=== PATIENT | female | born 1965 | race Caucasian/White ===

== ENCOUNTER 2017-11-15 01:00 | Emergency (ER) | payer OTHER ==
[~2017-11-15 01:00] MED LIST: HYDRALAZINE HCL50 MG PO; HYDROCHLOROTHIA25 MG PO; HYDROCODON-ACE1 EA10 PO; LISINOPRIL20 MG PO; METOPROLOL TART50 MG PO; NORVASC2.5 MG PO
== END 2017-11-15 01:39 | disposition left against medical advice (07) ==
LOC: ED 01:00
DX: Z53.21 Procedure and treatment not carried out due to patient leaving prior to being seen by health care provider (principal)

== ENCOUNTER 2017-12-12 21:12 | Emergency (ER) | payer OTHER ==
[~2017-12-12] VITALS: Ht 160 cm; Wt 89.8 kg
[2017-12-12] MEDS ORDERED: LABETALOL HCL100 MG PO (21:35)
[2017-12-12] MEDS ORDERED: AMLODIPINE BES2.5 MG PO (21:35)
[2017-12-12] MEDS ORDERED: TRAZODONE HCL100 MG PO (21:36)
[2017-12-12] MEDS ORDERED: PRISTIQ ER25 MG PO (21:36)
[2017-12-12] MEDS ORDERED: VENTOLIN HFA18 GM INH (21:38)
[2017-12-12] MEDS ORDERED: BUSPIRONE HCL5 MG PO (23:51)
== END 2017-12-13 00:02 | disposition home or self-care (01) ==
LOC: ED 21:12
DX: F41.9 Anxiety disorder, unspecified (principal); I10 Essential (primary) hypertension; F17.200 Nicotine dependence, unspecified, uncomplicated; Z88.0 Allergy status to penicillin; Z88.8 Allergy status to other drugs, medicaments and biological substances; Z91.040 Latex allergy status; Z79.899 Other long term (current) drug therapy
CPT/HCPCS: 96372; 99283; J2060

== ENCOUNTER 2018-09-06 17:27 | Emergency (ER) | payer OTHER ==
[~2018-09-06] VITALS: Ht 160 cm; Wt 95.2 kg
--- OUTSIDE RECORDS SUMMARY | ~2018-09-06 | XMS | Clinical Summary ---
Demographics + + + | Address | [address] | | | [place] [address] | + + + | Home Phone | | + + + | Preferred Language | Unknown | + + + | Marital Status | Unknown | + + + | Zoroastrianism Affiliation | Unknown | + + + | Race | Unknown | + + + | Ethnic Group | Unknown | + + + Author + + + | Author | [facility] | + + + | Organization | [facility] | + + + | Address | Unknown | + + + | Phone | Unavailable | + + + Support + + + + + | Name | Relationship | Address | Phone | + + + + + | Marc Alcazar | ECON | [address] | | | | | Apt [place] | | | | | [phone] | | + + + + + | Jenelle Caldwell | ECON | Unknown | | + + + + + Care Team Providers + +------+ + | Care Offbearer Name | Role | Phone | + +------+ + | Saqib Grullon MD | PP | | + +------+ + Allergies + + + + + + | Active Allergy | Reactions | Severity | Noted | Comments | | | | | Date | | + + + + + + | Adhesive Tape | Hives, Rash | High | 05/30/19 | | | | | | 15 | | + + + + + + | Latex | Rash | Medium | 05/30/19 | | | | | | 15 | | + + + + + + | Penicillins | Seizure | High | 05/30/19 | | | | | | 15 | | + + + + + + Current Medications + + +-------+---------+------+------+-------+ | Prescription | Sig. | Disp. | Refills | Star | End | Statu | | | | | | t | Date | s | | | | | | Date | | | + + +-------+---------+------+------+-------+ | lisinopril | Take 20 mg by mouth | | | | | Activ | | (ZESTRIL) 20 MG | 2 (two) times daily. | | | | | e | | tablet | | | | | | | + + +-------+---------+------+------+-------+ | hydrALAZINE | Take 50 mg by mouth | | | | | Activ | | (APRESOLINE) 50 MG | 3 (three) times | | | | | e | | tablet | daily. | | | | | | + + +-------+---------+------+------+-------+ | indapamide (LOZOL) | Take 2.5 mg by mouth | | | | | Activ | | 2.5 MG tablet | every morning. | | | | | e | + + +-------+---------+------+------+-------+ | spironolactone | Take 25 mg by mouth | | | | | Activ | | (ALDACTONE) 25 MG | daily. | | | | | e | | tablet | | | | | | | + + +-------+---------+------+------+-------+ | | Take 1 tablet by | | | | | Activ | | HYDROcodone-acetamin | mouth every 6 (six) | | | | | e | | ophen (NORCO) 5-325 | hours as needed for | | | | | | | MG per tablet | Pain. | | | | | | + + +-------+---------+------+------+-------+ | amLODIPine | Take 5 mg by mouth 2 | | | | | Activ | | (NORVASC) 5 MG | (two) times daily. | | | | | e | | tablet | | | | | | | + + +-------+---------+------+------+-------+ | allopurinol | Take 100 mg by mouth | | | | | Activ | | (ZYLOPRIM) 100 MG | daily. | | | | | e | | tablet | | | | | | | + + +-------+---------+------+------+-------+ Active Problems + + + | Problem | Noted Date | + + + | Marijuana abuse | 07/25/2014 | + + + | HTN (hypertension) | 05/30/2014 | + + + | Anemia | 05/30/2014 | + + + | Kidney stones | 05/30/2014 | + + + | Hyperuricemia | 05/30/2014 | + + + Resolved Problems + + + + | Problem | Noted | Resolved | | | Date | Date | + + + + | Diabetes | 05/30/19 | | | | 15 | 5 | + + + + Family History + + +------+ + | Medical History | Relation | Name | Comments | + + +------+ + | High cholesterol | Daughter | | | + + +------+ + | Kidney disease | Daughter | | | + + +------+ + | High cholesterol | Father | | | + + +------+ + | High cholesterol | Mother | | | + + +------+ + + +------+--------+ + | Relation | Name | Status | Comments | + +------+--------+ + | Daughter | | | | + +------+--------+ + | Father | | | | + +------+--------+ + | Mother | | | | + +------+--------+ + Social History + +-------+ +--------+ + | Tobacco Use | Types | Packs/Day | Years | Date | | | | | Used | | + +-------+ +--------+ + | Former Smoker | | | | Quit: 01/07/2014 | + +-------+ +--------+ + + + +---------+ + | Alcohol Use | Drinks/We | oz/Week | Comments | | | ek | | | + + +---------+ + | Yes | | | | + + +---------+ + + + + | Sex Assigned at | Date Recorded | | | | + + + | Not on file | | + + + Last Filed Vital Signs + + + + | Vital Sign | Reading | Time Taken | + + + + | Blood Pressure | 110/70 | 07/25/2014 12:26 PM PST | + + + + | Pulse | 71 | 07/25/2014 12:26 PM PST | + + + + | Temperature | 36.6 C (97.9 F) | 07/25/2014 12:26 PM PST | + + + + | Respiratory Rate | - | - | + + + + | Oxygen Saturation | 96% | 07/25/2014 12:26 PM PST | + + + + | Inhaled Oxygen | - | - | | Concentration | | | + + + + | Weight | 101.2 kg (223 lb) | 07/25/2014 12:26 PM PST | + + + + | Height | 160 cm (5' 3") | 05/30/2014 11:43 AM PST | + + + + | Body Mass Index | 39.5 | 07/25/2014 12:26 PM PST | + + + + Plan of Treatment Not on file Results Not on filefrom Last 3 Months Insurance + +--------+ +------+-------+ + | Payer | Benefi | Subscriber | Type | Phone | Address | | | t Plan | ID | | | | | | / | | | | | | | Group | | | | | + +--------+ +------+-------+ + | MEDICAID | AXEL | [id number] | | | [address] | | | N | | | | [place] | | | [place] | | | | [phone] | | | ROLLING ATTENDANT | | | | | + +--------+ +------+-------+ + + +--------+ +--------+ + + | Guarantor Name | Accoun | Relation to | Date | Phone | Billing Address | | | t Type | Patient | of | | | | | | | | | | + +--------+ +--------+ + + | MATILDE ALCAZAR | Person | Self [birth year] Home: | [address] | | | al/Fam | | 1965 | [phone] | | | [place] | | | [phone] | [place] | | | | | | | [phone] | + +--------+ +--------+ + +
--- OUTSIDE RECORDS SUMMARY | ~2018-09-06 | XMS | Clinical Summary ---
Demographics + + + | Address | [address] | | | [place] [address] | + + + | Home Phone | | + + + | Preferred Language | Unknown | + + + | Marital Status | Unknown | + + + | Orthodoxy Affiliation | Unknown | + + + | Race | Unknown | + + + | Ethnic Group | Unknown | + + + Author + + + | Author | [facility] | + + + | Organization | [facility] | + + + | Address | Unknown | + + + | Phone | Unavailable | + + + Support + + + + + | Name | Relationship | Address | Phone | + + + + + | Marc Alcazar | ECON | [address] | | | | | [place] | | | | | [phone] | | + + + + + | Jenelle Caldwell | ECON | Unknown | | + + + + + Care Team Providers + +------+ + | Care Purchasing Intern Name | Role | Phone | + [...] +------+-------+ + | MEDICAID | AXEL | [id number] | | | [address] | | | N | | | | [place] | | | [place] | | | | [phone] | | | EDUCATION RN | | | | | + +--------+ [...] | [birth year] | Home: | [address] | | | al/Fam | | 1965 | [phone] | [address] | | | [place] | | | [phone] | [place] | | | | | | | [phone] | + +--------+ +--------+ + +
[~2018-09-06 17:27] MED LIST changes: +AMLODIPINE BES2.5 MG PO; +BUSPIRONE HCL5 MG PO; +LABETALOL HCL100 MG PO; +PRISTIQ ER25 MG PO; +TRAZODONE HCL100 MG PO; +VENTOLIN HFA18 GM INH
--- OUTSIDE RECORDS SUMMARY | 2018-09-06 17:30 | XMS ---
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 Details: LWBS CRITERIA MET - Group Notification - PDMP CARE PROVIDERS There are no care providers on record at this time. Salvatore has no Care Guidelines for this patient. E.D. VISIT COUNT (12 MO.) 3 [facility] TOTAL 3 NOTE: Visits indicate total known visits. ED/UCC VISIT TRACKING (12 MO.) 09/06/2018 17:27 [facility] TYPE: Emergency COMPLAINT: - MOUTH PAIN,NON INJURY,POSS THRUSH 12/12/2017 21:14 [facility] [place] TYPE: Emergency COMPLAINT: - ANXIETY/MEDICAL CLEARANCE DIAGNOSES: - Allergy status to other drugs, medicaments and biological substances status - Allergy status to penicillin - Other senior living (current) drug therapy - Essential (primary) hypertension - Latex allergy status - Nicotine dependence, unspecified, uncomplicated - Anxiety disorder, unspecified 11/15/2017 01:00 [facility] [place] TYPE: Emergency COMPLAINT: - MEDICAL CLEARANCE DIAGNOSES: - Procedure and treatment not carried out due to patient leaving prior to being seen by health care provider INPATIENT VISIT TRACKING (12 MO.) 01/05/2018 06:10 [facility] [place] TYPE: Medical Surgical COMPLAINT: - RIGHT TOTAL HIP ARTHROSPLASTY W TOSHIA [email or web address]
[2018-09-06] MEDS ORDERED: NEURONTIN300 MG PO (18:59)
[2018-09-06] MEDS ORDERED: SEROQUEL100 MG PO (18:59)
[2018-09-06] MEDS ORDERED: CATAPRES0.2 MG PO (19:00)
[2018-09-06] MEDS ORDERED: NYSTATIN100000 UN1 PO (19:09)
[2018-09-06] MEDS ORDERED: BLOOD GLUCOSE1 EAC1 MISC (19:13)
== END 2018-09-06 19:36 | disposition home or self-care (01) ==
LOC: ED 17:27
DX: B37.0 Candidal stomatitis (principal); E11.9 Type 2 diabetes mellitus without complications; I10 Essential (primary) hypertension; F43.10 Post-traumatic stress disorder, unspecified; F41.9 Anxiety disorder, unspecified; F17.200 Nicotine dependence, unspecified, uncomplicated; Z88.0 Allergy status to penicillin; Z91.040 Latex allergy status; Z88.8 Allergy status to other drugs, medicaments and biological substances; Z91.048 Other nonmedicinal substance allergy status; Z79.899 Other long term (current) drug therapy
CPT/HCPCS: 36415; 80053; 81001; 83036; 85025; 99283

== ENCOUNTER 2020-04-24 11:45 | Emergency (ER) | payer OTHER ==
[~2020-04-24] VITALS: Ht 160 cm; Wt 78.9 kg
[~2020-04-24 11:45] MED LIST changes: +BLOOD GLUCOSE1 EAC1 MISC; +CATAPRES0.2 MG PO; +GLUCOPHAGE1000 MG PO; +GLUCOPHAGE500 MG; +LOSARTAN POTASS25 MG; +NEURONTIN300 MG PO; +NYSTATIN100000 UN1 PO; +PAXIL20 MG PO; +PERPHENAZINE2 MG; +QVAR REDIHALE10.6 G1 INH; +SEROQUEL100 MG PO
== END 2020-04-24 16:00 | disposition short-term general hospital (02) ==
LOC: ED 11:45
DX: R06.1 Stridor (principal); J39.1 Other abscess of pharynx; I10 Essential (primary) hypertension; F43.10 Post-traumatic stress disorder, unspecified; F41.9 Anxiety disorder, unspecified; Z87.891 Personal history of nicotine dependence; Z88.8 Allergy status to other drugs, medicaments and biological substances; Z88.0 Allergy status to penicillin; Z91.040 Latex allergy status; Z91.048 Other nonmedicinal substance allergy status; Z79.899 Other long term (current) drug therapy; Z85.850 Personal history of malignant neoplasm of thyroid
CPT/HCPCS: 70491; 71260; 80053; 85025; 94640; 96374; 96375; 99285-25; J1100; J2060; Q9967

== ENCOUNTER 2020-05-15 13:41 | Emergency (ER) | payer OTHER ==
[~2020-05-15] VITALS: Ht 160 cm; Wt 78.9 kg
--- OUTSIDE RECORDS SUMMARY | 2020-05-15 13:44 | XMS ---
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 If patient is seen in the ED during business hours. Please contact CHWs at [facility]. Care Recommendation: This patient has had 5 or more Emergency Department visits in the last 12 months.\T\nbsp; Patient requires education on the scope and purpose of the ED as an acute care provider not a Primary Care Provider and should not be utilized for chronic conditions.\T\nbsp; These are guidelines and the provider should exercise clinical judgment when providing care. E.D. VISIT COUNT (12 MO.) 1 [facility] TOTAL 3 NOTE: Visits indicate total known visits. 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 - Latex allergy status - Post-traumatic stress disorder, unspecified - Allergy status to penicillin - Other nonmedicinal substance allergy status - Personal history of nicotine dependence - Allergy status to other drugs, medicaments and biological substances - Other abscess of pharynx INPATIENT VISIT TRACKING (12 MO.) 04/24/2020 16:47 [facility] TYPE: Surgical Services DIAGNOSES: - Essential (primary) hypertension - Type 2 diabetes mellitus without complications - Stridor - Dysphagia, unspecified - Acute respiratory failure, unspecified whether with hypoxia or hypercapnia - Acute respiratory failure with hypoxia [email or web address]
[2020-05-15] MEDS ORDERED: ALBUTEROL2.5 MG/3 M INH (13:52)
[2020-05-15] MEDS ORDERED: CLINDAMYCI75 MG/5 M1 PO (13:53)
[2020-05-15] MEDS ORDERED: PREDNISONE5 MG PO (13:56)
[2020-05-15] MEDS ORDERED: LISINOPRIL20 MG PO (13:57)
[2020-05-15] MEDS ORDERED: AMLODIPINE BESY10 MG PO (13:57)
[2020-05-15] MEDS ORDERED: LABETALOL HCL200 MG PO (13:58)
[2020-05-15] MEDS ORDERED: GABAPENTIN250 MG/5 M PO (13:59)
--- NOTE | 2020-05-17 11:05 | OR ---
[facility] [address], [place] [address] Signed DATE OF OPERATION: 05/15/2020 SURGEON: Gianluca Hardy MD PREOPERATIVE DIAGNOSIS: Dislodgement of recently placed operative gastrostomy tube. POSTOPERATIVE DIAGNOSIS: Dislodgement of recently placed operative gastrostomy tube. PROCEDURE: Replacement of tube, gastrostomy (22-Ivorian WILVER feeding tube). ANESTHESIA: None. INDICATIONS: This 55-year-old white woman underwent tracheostomy with concurrent operative gastrostomy tube placement by Dr. Jacobsen in [place] about 10 days ago. Dislodgement of the tube occurred for reasons that are unclear. Plain abdominal x-ray shows no sign of free air to suggest pulling away of the stomach from the abdominal wall. She has no sign of peritonitis. Egress of bile was noted from the stomach. On that basis, she has recommended replacement of the tube. FINDINGS: The initial tube that was replaced was the same size that was previously placed 18-Ivorian. There is egress of bilious fluid around the tube and therefore this was exchanged for a 22-Ivorian WILVER feeding tube. Far or less leakage was noted at this point. DESCRIPTION OF PROCEDURE: In the supine position, the previous feeding tube was freed with a suture and the site was gently cleansed with moistened gauze. An 18-Ivorian WILVER feeding tube was placed through the site without problem and the flange secured to the skin. Egress of bilious fluid around the tube was noted and on that basis, exchange for a 22-Ivorian WILVER catheter was then undertaken with better result overall. The gauze was placed beneath the flange. The flange was secured snug, but not excessively tight after application of 15 mL of tap water to the balloon itself. The patient tolerated procedure well. The patient is advised to apply A and D ointment to the skin around the flange area and Electronically Signed By: GIANLUCA HARDY MD 05/17/20 9829 PATIENT NAME: MATILDE RUELAS OPERATIVE REPORT DATE OF : 65 REPORT #: [id number] PHYSICIAN: GIANLUCA HARDY MD PCP: RIKY ZAZUETA REPORT IS CONFIDENTIAL AND NOT TO BE RELEASED WITHOUT AUTHORIZATION [facility] [address] [place] [id number] Signed to change gauze as necessary. Continued use of the feeding tube was appropriate. I gave the patient in a zip lock bag the 18-Ivorian WILVER tube that was deemed too small. Should there be accidental dislodgement again, particularly in a time frame inconvenient for evaluation, should be able to pass that tube through the tract to preserve it and allow for further assessment and replacement of a larger size tube without hazard of gastrostomy site closure until futher evaluation can be undertaken. MD MARCO Love/ANGÉLICA /[id number] cc: Dm Hughes MD Copies: DM HUGHES MD ~ Electronically Signed By: GIANLUCA HARDY MD 05/17/20 1105 PATIENT NAME: JESSENIAMATILDESAUMYA MELCHOR OPERATIVE REPORT DATE OF : 65 REPORT #: [id number] PHYSICIAN: GIANLUCA HARDY MD PCP: RIKY ZAZUETA REPORT IS CONFIDENTIAL AND NOT TO BE RELEASED WITHOUT AUTHORIZATION
--- NOTE | 2020-05-17 11:05 | CONS ---
[facility] [address] [place], [place] [address] Signed DATE OF CONSULTATION: 05/15/2020 PROBLEM: Dislodged recent feeding tube. 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 The patient of Dr. Hughes and additionally Dr. Jacobsen recently. Her primary provider was ABIOLA Elizabeth. Several months ago, she had radiation therapy to her hypopharynx or vocal cords, but about a week ago, possibly 10 days underwent tracheostomy by Dr. Hughes as well as operative gastrostomy feeding tube by Dr. Jacobsen in [place]. For whatever reason, she awakened today, noting that the tube had been dislodged from the abdominal wall. She was directed to the emergency room and evaluated by Dr. Ivory, where excoriation of the skin in the region of the feeding tube was noted. There was a suture still attached to the flange of what appeared to be WILVER 18-Canadian feeding tube. I recommended an abdominal x-ray being obtained to assess for free air and there was none. On exam, she looks well overall. She is accompanied by her . She is able to phonate with occlusion of her tracheostomy... she is rather obese. Examination of the abdominal wall shows some excoriated skin with recent dark bilious fluid drainage. The feeding tube was completely out of the abdominal cavity, though the suture remains attached to the flange itself. ASSESSMENT: Since this was an operative feeding tube, it is less likely that the stomach has fallen from the abdominal wall, even though it was relatively recently placed. Egress of bilious fluid from the site is encouraging as to continuity of the stomach to the abdominal wall as well. I have recommended simple replacement of the feeding tube, possibly with a larger tube since there appears to have been egress around the tube from before, they agree to this. Gianluca Hardy MD Electronically Signed By: GIANLUCA HARDY MD 05/17/20 1105 PATIENT NAME: MERRILL RUELASNA JILL CONSULTATION DATE OF : 65 REPORT #: [id number] PHYSICIAN: GIANLUCA HARDY MD PCP: DEEPAK ZAZUETA REPORT IS CONFIDENTIAL AND NOT TO BE RELEASED WITHOUT AUTHORIZATION [facility] [address] [place], [place] [address] Signed /[facility] /[id number] cc: MD Deepak Goetz FNP Copies: DONNA HUGHES MD, WADE R FNP ~ Electronically Signed By: GIANLUCA HARDY MD 05/17/20 1105 PATIENT NAME: MATILDE RUELAS CONSULTATION DATE OF : 65 REPORT #: [id number] PHYSICIAN: GIANLUCA HARDY MD PCP: DEEPAK ZAZUETA REPORT IS CONFIDENTIAL AND NOT TO BE RELEASED WITHOUT AUTHORIZATION
== END 2020-05-15 19:28 | disposition home or self-care (01) ==
LOC: ED 13:41
DX: K94.23 Gastrostomy malfunction (principal); I10 Essential (primary) hypertension; F43.10 Post-traumatic stress disorder, unspecified; F41.9 Anxiety disorder, unspecified; Z87.891 Personal history of nicotine dependence; Z88.8 Allergy status to other drugs, medicaments and biological substances; Z88.0 Allergy status to penicillin; Z91.040 Latex allergy status; Z91.048 Other nonmedicinal substance allergy status; Z79.899 Other long term (current) drug therapy; Z79.52 Long term (current) use of systemic steroids
CPT/HCPCS: 71045; 96374; 96376; 99283-25; J1170